=== PATIENT | female | born 1945 | race American Indian/Alaskan Native ===

== ENCOUNTER 2017-01-08 15:29 | Outpatient (CLI) | payer MEDICARE ==
--- NOTE | 2017-01-08 16:13 | XRay Report ---
Left knee 3 views: History: Knee pain. Findings: Marked narrowing of the medial, lateral and patellofemoral knee joint. Sclerotic adjacent articular surfaces with osteophyte suggestive of severe degenerative changes. There is suspicion of fluid noted in the suprapatellar bursa. No evidence of acute fracture. Impression: Severe tricompartment degenerative changes .
== END 2017-01-08 15:30 | disposition home or self-care (01) ==
LOC: SPVIMAG 15:29
DX: M17.12 Unilateral primary osteoarthritis, left knee (principal); M25.762 Osteophyte, left knee

== ENCOUNTER 2019-02-03 15:23 | Outpatient (CLI) | payer MEDICARE ==
--- NOTE | 2019-02-03 16:04 | XRay Report ---
. ABDOMEN 1 VIEW(S) INDICATION / CLINICAL INFORMATION: ABD PAIN/BACK PAIN. COMPARISON: None available. FINDINGS: TUBES / LINES: None. BOWEL GAS PATTERN/EXTRALUMINAL GAS: No significant abnormality. No pneumatosis or secondary signs of free air. ADDITIONAL FINDINGS: Phleboliths are noted in the pelvis. IMPRESSION: 1. No significant abnormality. Signer Name: Bright Gupta MD Signed: 02/03/2019 4:00 PM Workstation Name: [id number]
--- NOTE | 2019-02-03 16:06 | XRay Report ---
LUMBOSACRAL SPINE, 3 VIEWS INDICATION: Back pain with radicular symptoms to both lower extremities. COMPARISON: None. IMPRESSION: Osteopenia is evident. There is mild dextro curvature of the lumbar spine on the fronta l image. Moderate degenerative disc disease is identified at L2-3 and L3-4. Mild diffuse facet arthr opathy. No evidence for acute fracture, subluxation or bone lesion. The sacrum and SI joints are unre markable. Signer Name: Wenceslao Pascual Jr, MD Signed: 02/03/2019 4:02 PM Workstation Name: [id number]
== END 2019-02-03 15:24 | disposition home or self-care (01) ==
LOC: SPVIMAG 15:23
PROVIDERS: ATTEND Family Medicine
DX: M85.88 Other specified disorders of bone density and structure, other site (principal); M51.36 Other intervertebral disc degeneration, lumbar region; M46.87 Other specified inflammatory spondylopathies, lumbosacral region; I87.8 Other specified disorders of veins
CPT/HCPCS: 72100; 74018